=== PATIENT | male | born 1995 | race Caucasian/White ===

== ENCOUNTER 2020-10-13 15:01 | Emergency (ER) | payer OTHER ==
[2020-10-13] MEDS ORDERED: BACTRIM DS TAB1 EACH PO (19:10)
[2020-10-13] MEDS ORDERED: CEPHALEXIN500 M1 PO (19:10)
[2020-10-13] MEDS ORDERED: IBUPROFEN800 MG PO (19:35)
== END 2020-10-13 20:00 | disposition home or self-care (01) ==
LOC: ER1 15:01
DX: L02.214 Cutaneous abscess of groin (principal); F17.210 Nicotine dependence, cigarettes, uncomplicated
CPT/HCPCS: 10060; 99282